=== PATIENT | female | born 1980 | race Caucasian/White ===

== ENCOUNTER 2017-01-04 12:54 | Emergency (ER) | payer OTHER ==
[~2017-01-04] VITALS: Ht 157.5 cm; Wt 59.0 kg
[2017-01-04 13:05] VITALS: BP 112/68; PULSE 64; RESP 18; TEMP 98.3; O2SAT 97
[2017-01-04 14:02] LABS: BILIRUBIN,URINE NEGATIVE (NEGATIVE); BLOOD, URINE 1+ (NEGATIVE); CLARITY/URINE CLEAR (CLEAR); COLOR,URINE YELLOW (YELLOW); GLUCOSE,URINE TRACE (NEGATIVE); KETONES,URINE NEGATIVE (NEGATIVE); LEUKOCYTE ESTERASE ,URINE NEGATIVE (NEGATIVE); NITRITE, URINE NEGATIVE (NEGATIVE); PROTEIN URINE NEGATIVE (NEGATIVE); UROBILINOGEN,URINE 0.2 (0.2-1.0)
[2017-01-04 14:09] LABS: BACTERIA,URINE FEW /HPF (None Seen); WBC,URINE 0-3 /HPF (0-3)
[2017-01-04 14:35] VITALS: BP 110/62; PULSE 68; RESP 16; TEMP 98.3; O2SAT 98
== END 2017-01-04 14:35 | disposition home or self-care (01) ==
LOC: SED 12:54
DX: R33.9 Retention of urine, unspecified (principal)
CPT/HCPCS: 81000-TC; 81025; 99284